=== PATIENT | male | born 1935 | race Caucasian/White ===

== ENCOUNTER 2016-11-23 14:50 | Inpatient (IN) | payer MEDICARE, BC, MEDICAID ==
--- NOTE | 2016-11-23 15:19 | ED Physician Chart ---
Chief Complaint/HPI - Patient Information Date Seen:: 11/23/16 Time Seen:: 14:52 Chief Complaint:: Hyperglycemia History of Present Illness:: Brought in by ambulance from nursing facility because his glucose was noticed to be in the high 400's/low 500's range. Pt appears to be comfortable and is in no distress. Pt has h/o dementia and is not fully cooperative; thus, H & P are limited. Info is primarily from review of transfer documents. Allergies:: Allergies Allergy/AdvReac Type Severity Reaction Status Date / Time No Known Allergies Allergy Verified 04/09/16 17:05 Vitals:: see Nurse Note. Historian:: Patient, Medical Records (from transferring facility.) Family MD/PCP:: Dr. Vang LMP:: N/A Review:: Nurse's Note Reviewed, Transfer documents Reviewed Review of Systems - Review of Systems General/Constitutional: Other (pt does not cooperate for ROS.) Past Medical History - Past Medical History Past Medical History: HTN, DM, CAD, Dementia (with Alzheimer's Disease.), Other (BPH, chronic renal insufficiency.) Family History: Other (Pt does not cooperate to provide info on FHx.) Social History: Care Facility, Other (Pt does not cooperate to provide info on SHx.) Employment:: Retired. Surgical History: other (Pt does not cooperate to provide info on Surgical Hx.) Psychiatricy History: Dementia Medication: Reviewed Family Medical History - Family Member Mother History Unknown: Yes Ethnicity: Unknown Living Status: Unknown Hx Family Cancer: (Unknown) Hx Family Coronary Artery Disease: (Unknown) Hx Family Congestive Heart Failure: (Unknown) Hx Family Hypertension: (Unknown) Hx Family Stroke: (Unknown) Hx Family Diabetes: (Unknown) Hx Family Seizures: (Unknown) Hx Family Dementia: (Unknown) Hx Family AIDS: (Unknown) Hx Family Hepatitis: (Unknown) Hx Family Psychiatric Problems: (Unknown) Hx Family Tuberculosis: (Unknown) Physical Exam - Physical Examination General/Constitutional: Awake, Well-developed, well-nourished, Alert, No distress, Non-toxic appearing Other Gen/Cons comments:: Breathes comfortably, speaks clearly, but is not fully cooperative. Head: Atraumatic Eyes: Lids, conjuctiva normal, PERRL, EOMI Skin: Nl inspection, No rash, No skin lesions, No ecchymosis, Well hydrated, No lymphadenopathy ENMT: External ears, nose nl, Nasal exam nl, Oropharynx nl Neck: Nontender, Full ROM w/o pain, No JVD, No nuchal rigidity, No mass, No stridor Respiratory: Nl effort/Exclusion, Clear to Auscultation, No Wheeze/Rhonchi/Rales Cardio Vascular: RRR, No murmur, gallop, rubs, NL S1 S2 Other Cardio Vascular comments:: Chest wall: tenderness to palpation at costosternal junctures at R mid upper chest. No crepitus, erythema, ecchymosis, swelling, open wound, or gross deformity. Pt states that he may have had this pain for months. GI: No tenderness/rebounding/guarding, No organomegaly, No hernia, Normal BS's, Nondistended, No mass/bruits, No McBurney tenderness Other GI comments:: Obese but soft. : No CVA tenderness Extremities: No tenderness or effusion, No edema Other Neuro/Psych comments:: Alert, knows his name. Spontaneous movements noticed in all 4 extremities. Pt does not cooperate for full neurological exam. Labs/Radiology/EKG Results - Lab Results Results: Laboratory Tests 11/23/16 15:01 POC Glucose 462 H* - EKG Interpretations EKG Time:: 15:31 Rhythm: NSR Rate: 76 Comments:: No acute ischemic changes. ED Septic Shock - . Is Septic Shock (SBP<90, OR Lactate>4 mmol\L) present?: No Reassessment (Disposition) - Reassessment Reassessment:: 1530 Pain medication was offered. Pt declined and stated that his chest pain occurs only when he takes a deep breath. 1715 Pt's condition remains stable. Case has been discussed with Dr. Miner, who covers for Dr. Vang, with pertinent H & P, EKG, CXR, and lab findings reviewed. Pt [facility] care. Reassessment Condition:: Improved - Diagnosis Diagnosis:: Urinary tract infection. Stable. Diabetic mellitus, poorly controlled due to condition above. Chronic renal insufficiency, stable. Noncardiac chest wall pain, stable. HTN, stable. h/o dementia. - Patient Disposition Admitted to:: Med/Surg Admitting Medical Physician:: Herson Miner Time:: 17:20 Condition at Disposition:: Stable, Improved
[2016-11-23 15:41] LABS: % BASOPHILS 0.8 % (0.0-2.0); % EOSINOPHILS 2.5 % (0.0-5.0); % LYMPHOCYTES 24.1 % (20.0-50.0); % MONOCYTES 7.3 % (2.0-10.0); % NEUTROPHILS 65.3 % (40.0-80.0); HEMATOCRIT 41.4 % (39.0-49.0); HEMOGLOBIN 13.9 gm/dL (12.6-17.4); MEAN CELL VOLUME 83.8 fl (80-99); MEAN CORPUSCULAR HGB CONC 33.5 pg (28.0-36.0); MEAN PLATELET VOLUME 8.5 fl; NEUTROPHILE ABSOLUTE 5.6 Th/cmm (1.8-8.0); PLATELET COUNT 230 Th/cmm (150-400); RED BLOOD COUNT 4.94 Mil/cmm (3.80-5.80); RED CELL DISTRIBUTION WIDTH 12.3 % (11.5-20.0)
[2016-11-23 15:53] LABS: WHITE BLOOD COUNT 8.6 Th/cmm (4.8-10.8)
[2016-11-23 15:57] LABS: PROTHROMBIN TIME (TEST) 9.9 SECONDS (9.5-11.5)
[2016-11-23 16:01] LABS: ALB/GLOB RATIO 0.9 (1.0-1.8); ALKALINE PHOSPHATASE 90 U/L (34-104); ANION GAP 8.3 (7.0-16.0); BILIRUBIN,TOTAL 0.3 mg/dL (0.3-1.0); BUN - UREA NITROGEN 34 mg/dL (7-25); BUN/CREATININE RATIO 18.9; CALCIUM SERUM 9.4 mg/dL (8.6-10.3); CARBON DIOXIDE 24.3 mEq/L (21.0-31.0); CHLORIDE 101 mEq/L (98-107); CREATININE - SERUM 1.8 mg/dL (0.7-1.3); GLUCOSE 410 mg/dL (70-105); POTASSIUM SERUM 4.6 mEq/L (3.5-5.1); SGOT 11 U/L (13-39); SGPT/ALT 10 U/L (7-52); SODIUM SERUM 129 mEq/L (136-145)
[2016-11-23 16:09] LABS: URINE BILIRUBIN NEGATIVE (NEGATIVE); URINE BLOOD TRACE (NEGATIVE); URINE COLOR YELLOW; URINE GLUCOSE (UA) 500 mg/dL (NEGATIVE); URINE KETONE NEGATIVE (NEGATIVE); URINE PROTEIN TRACE mg/dL (NEGATIVE); URINE UROBILINOGEN 0.2 E.U./dL (0.2 - 1.0)
[2016-11-23 16:10] LABS: URINE BACTERIA MANY /hpf (NONE SEEN); URINE EPITHELIAL CELLS FEW /lpf (FEW); URINE RBC 0-2 /hpf (0-5); URINE WBC 50-100 /hpf (0-5)
[2016-11-23] MEDS ORDERED: INSULIN HUMAN REGULAR 100 UNITS/ML UNIT SUBQ ONE (16:23)
[2016-11-23] MEDS ORDERED: Levofloxacin 500mg/100mL 500 MG in Premix Fluid 1 BAG IV ONE (16:24)
[2016-11-23] MEDS ORDERED: Levofloxacin 500mg/100mL 500 MG/100 ML BAG IV ONE (16:27)
[2016-11-23] MEDS ORDERED: INSULIN HUMAN REGULAR 100 UNITS/ML UNIT ONE (16:28)
--- NOTE | 2016-11-23 18:22 | Admit Criteria Form ---
Admit Criteria Forms - Admit Criteria Diagnosis: DIABETES Clinical Indications for Admission to Inpatient Care (Place 'X' for any and all applicable criteria): Admission is indicated by presence of ALL (if I & II) or ANY ONE (if III or IV) of the following (1)(2)(3)(4): [X]I. Diabetes is uncontrolled as indicated by ANY ONE of the following: [ ]a) Diabetic ketoacidosis as indicated by ALL of the following (8): [ ]i) Hyperglycemia (eg, plasma glucose greater than 200 mg/ dL (11.1 mmol/L)) [ ]ii) Acidosis (eg, arterial pH less than 7.30, serum bicarbonate level less than 15 mEq/L (mmol/L)) [ ]iii) Moderate ketonuria or ketonemia [ ]b) Hyperglycemic hyperosmolar state as indicated by ALL of the following(9)(10): [ ]i) Neurologic dysfunction (eg, stupor, coma, hemiparesis , seizure)(13) [ ]ii) Plasma glucose greater than 600 mg/dL (33.3 mmol/L) [ ]iii) Serum osmolality greater than 320 mOsm/kg (mmol/kg) [X]c) Severe signs or symptoms secondary to hyperglycemia indicated by ANY ONE of the following: [ ]i) Altered mental status(10) [ ]ii) Significant hypovolemia or dehydration [ ]iii) Intractable nausea or vomiting [X]iv) Unexplained fever or severe infection [X ]v) Severe electrolyte abnormality (eg, hypokalemia, hyperkalemia, hypernatremia) [ ]II. Management at other levels of care (Also use Diabetes: Observation Care as appropriate) is not feasible because of ANY ONE of the following: [ ]a) Condition was not adequately corrected with treatment at other levels of care. [ ]b) Treatment at other levels of care is not appropriate because of condition severity (eg, hyperosmolar coma). [ ]III. Contraindications and/or Inappropriate clinical situations for Observational Care in patients with Diabetes, when ANY ONE of the following is required: [ ]a) Patient require specific diagnostic workup or therapeutic intervention 22 [ ]b) Patient with abnormal vital signs or altered mental status 23 [ ]IV. General contraindications and/or Inappropriate clinical situations for Observational Care in patients with Diabetes, when ANY ONE of the following is required: [ ]a) Prediction of prolongation of LOS based on ANY ONE of the following may be considered as a contraindication for observational care 2, 3, 4, 5, 6, 7, 8, 9, 10, 11 [ ]i) Age > 65 yrs. [ ]ii) Patient arriving by ambulance [ ]iii) Patient with high acuity [ ]iv) Patient requiring vital sign monitoring [ ]v) Patient on IV medication [ ]b) Systolic blood pressures 180mmHg 3,12 [ ]c) Patient with altered mental status including delirium and other alteration of consciousness, (3) [ ]d) Patient whose discharge disposition will be to a nursing home home or rehabilitation home should not be managed in Emergency Department Observation Unit. CMS rule requires 3 days hospital stay before such placement.3,13 [ ]e) Patient with failure to thrive due to broad array of etiologies 3,16,17 [ ]f) Inability to ambulate 3,14 Extended stay beyond goal length of stay may be needed for(3)(20): [ ]a) Treatment of precipitating causes [ ]b) Development of hypoglycemia [ ]c) Complications of treatment [ ]d) Complications of decompensated diabetes (eg, acute gastric dilatation, persistent metabolic or neurologic derangement) [ ]e) Active Comorbidities [ ]f) Older patients( 65 years or older) The original [facility] content created by [employer] has been revised. The portions of the content which have been revised are identified through the use of italic text or in bold,and [employer] has neither reviewed nor approved the modified material. All other unmodified content is copyright [facility] [employer]. Please see references footnoted in the original [facility] [employer] edition 2016 Admit Criteria Met?: Yes
[2016-11-23] MEDS ORDERED: Sodium Chloride 0.9% 1,000 ML IV SCH (18:30)
[2016-11-23] MEDS ORDERED: cefTRIAXone 1 GM in Sodium Chloride 0.9% 50 ML IV ONE (18:30)
[2016-11-23] MEDS ORDERED: Magnesium Hydroxide (MOM) 30 mL UDC PO PRN (19:34)
[2016-11-23] MEDS ORDERED: cefTRIAXone 1 GM in Sodium Chloride 0.9% 50 ML IV SCH (19:45)
[2016-11-23] MEDS: INSULIN ASPART SLIDING SCALE 100 UNITS/ML UNIT SUBQ SCH (20:18)
--- NOTE | 2016-11-23 20:59 | History & Physical ---
CHIEF COMPLAINT: Elevated blood sugar. HISTORY OF PRESENT ILLNESS: This is an 81-year-old male with past medical history significant for diabetes who presents after [facility] staff were unable to get a reading on his blood sugar because it was too at a range. The patient was sent to Emergency Room for evaluation. In the ER the patient's blood sugar was found to be in the 400 range. He was also found to have evidence of urinary tract infection. He has been admitted for further treatment and care. The patient was seen in hospital bed. He is awake, able to communicate needs, but confused and a poor historian. Denies any chest pain, abdominal pain, denies any fever or chills. Denies any nausea, vomiting or diarrhea. PAST MEDICAL HISTORY: The patient has history of dementia, diabetes mellitus, chronic kidney disease and chronic hyponatremia. MEDICATIONS: As per reconciliation. ALLERGIES: No known drug allergies. SOCIAL HISTORY: No tobacco, alcohol or illicit drug use. The [facility] is a resident of [facility]. FAMILY HISTORY: Noncontributory. REVIEW OF SYSTEMS: IMMUNOLOGIC: No recurrent infection. CARDIOVASCULAR: No known heart disease or hypertension. GASTROINTESTINAL: No nausea, vomiting or diarrhea. ENDOCRINE: The patient has diabetes. No thyroid disorder. NEUROLOGIC: No seizure or stroke. HEMATOLOGIC: No bleeding or clotting disorder. PHYSICAL EXAMINATION: GENERAL: The patient is awake and alert, in no acute distress and tends to ambulate in room despite being instructed to stay in bed. HEENT: The patient's pupils are equally round and anicteric sclerae. NECK: Supple. No JVD, mass or bruit. LUNGS: Clear to auscultation. HEART: S1 and S2 regular rate and rhythm. ABDOMEN: Soft, nontender, positive bowel sounds. EXTREMITIES: No clubbing, cyanosis or edema. BACK: ____deformity. NEUROLOGIC: Moves all extremities equally. No motor or sensory deficit except for confusion. VITAL SIGNS: Temperature 97.7, pulse 78, respirations 20 and blood pressure 162/94. LABORATORY DATA: CBC is unremarkable. Sodium is 139, BUN 24, creatinine 1.8, glucose is 410 and albumin is ____. Urinalysis shows small leukocyte esterase, 50-100 wbc's and many bacteria. IMPRESSION: 1. Hyperglycemia. 2. Uncontrolled diabetes mellitus. 3. Hyponatremia. 4. Urinary tract infection. 5. Dementia. 6. Mild malnutrition. PLAN: Admit to med/surg. Empirically started on IV antibiotics. Continue IV hydration and the patient will need a sitter as well as be on fall precautions given this propensity to wander. We will request a psychiatric consult for further evaluation. JOB# [id number]
[2016-11-24] MEDS: Insulin Detemir 100 units/mL 10mL Vial SUBQ SCH ×2 (01:18→22:19)
[2016-11-24 07:10] LABS: % BASOPHILS 0.3 % (0.0-2.0); % EOSINOPHILS 3.6 % (0.0-5.0); % LYMPHOCYTES 24.4 % (20.0-50.0); % MONOCYTES 6.5 % (2.0-10.0); % NEUTROPHILS 65.2 % (40.0-80.0); HEMATOCRIT 38.8 % (39.0-49.0); HEMOGLOBIN 13.1 gm/dL (12.6-17.4); MEAN CELL VOLUME 83.1 fl (80-99); MEAN CORPUSCULAR HEMOGLOBIN 28.2 pg (27.0-31.0); MEAN CORPUSCULAR HGB CONC 33.9 pg (28.0-36.0); MEAN PLATELET VOLUME 8.9 fl; NEUTROPHILE ABSOLUTE 5.5 Th/cmm (1.8-8.0); PLATELET COUNT 212 Th/cmm (150-400); RED BLOOD COUNT 4.67 Mil/cmm (3.80-5.80); RED CELL DISTRIBUTION WIDTH 12.3 % (11.5-20.0); WHITE BLOOD COUNT 8.5 Th/cmm (4.8-10.8)
[2016-11-24 07:12] LABS: ANION GAP 8.3 (7.0-16.0); BUN - UREA NITROGEN 35 mg/dL (7-25); BUN/CREATININE RATIO 20.6; CALCIUM SERUM 9.1 mg/dL (8.6-10.3); CARBON DIOXIDE 22.7 mEq/L (21.0-31.0); CHLORIDE 106 mEq/L (98-107); CREATININE - SERUM 1.7 mg/dL (0.7-1.3); GLUCOSE 287 mg/dL (70-105); SODIUM SERUM 133 mEq/L (136-145)
[2016-11-24] MEDS: Sodium Chloride 0.9% 1,000 ML IV SCH ×2 (09:55→23:04)
[2016-11-24] MEDS: Multivitamin w/ Minerals Tab PO SCH (09:56)
[2016-11-24] MEDS: INSULIN ASPART SLIDING SCALE 100 UNITS/ML UNIT SUBQ SCH ×3 (12:14→22:18)
--- NOTE | 2016-11-24 16:45 | Diagnostic Imaging Report ---
Portable chest x-ray History: Pain Allowing for portable technique the heart size is normal. No focal pulmonary parenchymal processes. No hilar or mediastinal abnormalities. Impression: Allowing for a poor inspiration, no acute processes.
[2016-11-24] MEDS ORDERED: cefTRIAXone 1 GM in 0.9% NS 50 ML IV SCH (21:00)
[2016-11-25] MEDS: INSULIN ASPART SLIDING SCALE 100 UNITS/ML UNIT SUBQ SCH ×4 (06:36→21:41)
[2016-11-25] MEDS: Multivitamin w/ Minerals Tab PO SCH (09:20)
[2016-11-25] MEDS ORDERED: Insulin Detemir 100 units/mL 10mL Vial SUBQ SCH (12:11)
[2016-11-25] MEDS ORDERED: cefTRIAXone 1 GM in Sodium Chloride 0.9% 100 ML IV SCH (21:00)
--- NOTE | 2016-11-26 02:12 | Discharge Summary ---
FINAL DIAGNOSES: 1. Urinary tract infection. 2. Hyponatremia. 3. Uncontrolled diabetes mellitus. 4. Dementia. REVIEW OF HISTORY: The patient is an 81-year-old male with long history of diabetes mellitus and dementia, presented to the Emergency Room with severe hyperglycemia and hyponatremia, admitted to the hospital. We started him on IV fluid, diabetic diet, sliding scale with regular insulin coverage, Psych evaluation ordered. PHYSICAL EXAMINATION: CHEST: Clear to auscultation. ABDOMEN: Soft. Bowel sounds positive. EXTREMITIES: No edema. VITAL SIGNS: Temperature 97.7, heart rate 78. LABORATORY DATA: Sodium 139, BUN 24, creatinine ____. COURSE OF HOSPITALIZATION: During his hospitalization, the patient improved clinically. PHYSICAL EXAMINATION: On 11/24/2016: VITAL SIGNS: Temperature 98, heart rate 86. CHEST: Clear to auscultation. ABDOMEN: Soft. Bowel sounds positive. LABORATORY DATA: Sodium 133, potassium 4.0, BUN 35, creatinine . White blood cell 8.5, hemoglobin 13. DISPOSITION: The patient is accepted by [facility] at [facility]. The patient is going to be transferred to Geropsych Department on 07/25/2017 to continue on his antibiotic medication. CONDITION ON DISCHARGE: Stable. MEDICATIONS: Follow discharge reconciliation. JOB# [id number]
--- NOTE | 2016-11-26 04:03 | Consultation ---
REASON FOR CONSULTATION: Psych eval. HISTORY OF PRESENT ILLNESS: This is an 81-year-old male currently from a nursing facility, brought in due to high glucose. On [id number], the patient is confused, AO to name only, does not know where he is. He does not know why he is here. He does not really know what is going on. Resting comfortably on exam. No distress. PAST PSYCHIATRIC HISTORY: Unclear. Appears to be demented. FAMILY HISTORY: Unknown. SOCIAL HISTORY: Living in a nursing facility, requiring a high level of care. Denies that he is . Denies any children. MEDICATIONS: Reviewed. LAB DATA: Reviewed. MENTAL STATUS EXAMINATION: Appearance stated age, some eye contacts, and speech decreased content. Mood "okay." Affect flat. Thought processes were confused. Thought content, no overt SI or HI. No overt evidence of psychosis. Insight and judgment diminished x 2. PROVISIONAL DIAGNOSIS: Dementia. Under medical, as noted. RECOMMENDATIONS AND PLAN: No changes at this time, no acute psychiatric interventions at this time. Consider the addition of Aricept, continue Namenda. We will continue to follow up. JOB# [id number]
== END 2016-11-25 23:24 | DRG 638 ==
LOC: ER 14:50 → MSI 17:15
PROVIDERS: ADMIT Family Medicine; ATTEND Family Medicine
DX: E11.65 Type 2 diabetes mellitus with hyperglycemia (principal); E87.1 Hypo-osmolality and hyponatremia; N39.0 Urinary tract infection, site not specified; E44.1 Mild protein-calorie malnutrition; E11.22 Type 2 diabetes mellitus with diabetic chronic kidney disease; N18.9 Chronic kidney disease, unspecified; I25.10 Atherosclerotic heart disease of native coronary artery without angina pectoris; G30.9 Alzheimer's disease, unspecified; F02.80 Dementia in other diseases classified elsewhere, unspecified severity, without behavioral disturbance, psychotic disturbance, mood disturbance, and anxiety; N40.0 Benign prostatic hyperplasia without lower urinary tract symptoms; I12.9 Hypertensive chronic kidney disease with stage 1 through stage 4 chronic kidney disease, or unspecified chronic kidney disease; R07.89 Other chest pain
CPT/HCPCS: 36415-UA; 71010-TC; 80048-TC; 80053-TC; 81001-TC; 82010-TC; 82550-TC; 82947-TC; 82948-90; 83036-90; 84484-TC; 85025-TC; 85610-TC; 87086-90; 93005; J0696; J1815; J1956; J7030

== ENCOUNTER 2016-11-25 23:25 | Inpatient (IN) | payer MEDICARE, BC, MEDICAID ==
[2016-11-26] MEDS ORDERED: Magnesium Hydroxide (MOM) 30 mL UDC PO PRN (00:49)
[2016-11-26] MEDS ORDERED: Maalox 30 mL Cup PO PRN (00:49)
[2016-11-26 02:10] VITALS: BP 152/89
[2016-11-26] MEDS: INSULIN ASPART SLIDING SCALE 100 UNITS/ML UNIT SUBQ SCH ×4 (06:42→21:00)
[2016-11-26] MEDS: Multivitamin Tab PO SCH (09:19)
[2016-11-26] MEDS ORDERED: Insulin Detemir 100 units/mL 10mL Vial SUBQ SCH (21:00)
[2016-11-26] MEDS: Insulin Detemir 100 units/mL 10mL Vial SUBQ SCH (21:53)
--- NOTE | 2016-11-27 01:30 | History & Physical ---
HISTORY OF PRESENT ILLNESS: The patient is an 81-year-old male with long history of insulin requiring diabetes mellitus and dementia, admitted to [facility] with altered level of consciousness, urinary tract infection, agitation, started on Rocephin, evaluated by Dr. Heard and transferred to [facility] for continuation of medication and evaluation. The patient is a poor historian. PAST MEDICAL HISTORY: Significant for insulin requiring diabetes mellitus, dementia. PAST SURGICAL HISTORY: No recent surgery. ALLERGIES: None. MEDICATIONS: Follow admission reconciliation. SOCIAL HISTORY: No smoking, alcohol or drug. FAMILY HISTORY: Noncontributory. REVIEW OF SYSTEMS: RENAL SYSTEM: No history of chronic renal disorder. CARDIOVASCULAR SYSTEM: No coronary artery disease. ENDOCRINE SYSTEM: He has history of diabetes mellitus. GASTROINTESTINAL SYSTEM: No upper or lower gastrointestinal bleed. NEUROLOGICAL SYSTEM: He has history of dementia. PHYSICAL EXAMINATION: GENERAL: He is awake, not coherent. VITAL SIGNS: Temperature is 97.6, heart rate 89, blood pressure 141/77. HEENT: Normocephalic. Pupils reacting to light and accommodation. Sclerae clear. NECK: Supple. Negative for lymphadenopathy, JVD or bruit. CHEST: Bilaterally normal. No rhonchi or wheezing. HEART: S1, S2 normal. No murmur or gallop. ABDOMEN: Soft. Bowel sounds positive. EXTREMITIES: No edema. BACK: No tenderness. SKIN: Intact. NEUROLOGIC: He is awake, alert, not fully oriented. No focal motor or sensory deficits. Cranial nerves II-XII intact. ASSESSMENT: 1. Urinary tract infection. 2. Insulin requiring diabetes mellitus. 3. Hypertension. 4. Dementia. PLAN: The patient admitted to the hospital under Dr. Mcneal's service. The medical problems to be addressed during hospitalization are dementia and urinary tract infection. Medical problems to be addressed at discharge are diabetes mellitus and dementia. The patient is medically stable for activity. Thank you, Dr. Mcneal, for asking me to see your patient. JOB# [id number]
--- NOTE | 2016-11-27 01:31 | Psychosocial Evaluation ---
CHIEF COMPLAINT: "I don't know. Don't ask me too many questions." HISTORY OF PRESENT ILLNESS: The patient is an 81-year-old male with history of dementia. The patient was transferred from [facility]. The patient has been anxious and has been in irritable mood. The patient also has been confused. The patient also has been restless. The patient also has been suspicious and has been paranoid. He also has been having difficulty following staff directions and the patient needed lots of redirections. PAST PSYCHIATRIC HISTORY: The patient has history of dementia. PAST MEDICAL HISTORY: No acute and as per Dr. Vnag and insulin-dependent diabetes mellitus. SOCIAL HISTORY: No known alcohol or drug use. MENTAL STATUS EXAMINATION: The patient appears his stated age. Anxious. Slightly overweight. Thought processes are circumstantial with flight of ideas. The patient denies auditory or visual hallucinations, but seems to be suspicious and paranoid. The patient denies any suicidal or homicidal ideations. The patient is alert and oriented to time, place, person and situation. Impaired, immediate and recent memory, but intact remote memory. Poor insight and he does not know why he is in the hospital. Poor judgment and the patient is agitated and aggressive. He seems to be of average intelligence based on his verbal ability. ASSESSMENT: PRIMARY DIAGNOSIS: Unspecified psychosis. TREATMENT PLAN: We will continue monitoring his behavior and his condition closely. We will start individual as well as milieu psychotherapy. Also, we will start the patient on Risperdal and we will adjust the dose. ESTIMATED LENGTH OF STAY: 7-10 days. THE PATIENT'S STRENGTHS AND WEAKNESSES: The patient seems to be in relatively fair health. Weaknesses is his ineffective coping and poor impulse control. AFTER DISCHARGE PLAN: Outpatient treatment and the patient will return to his group home. CRITERIA FOR DISCHARGE: Better impulse control. JOB# [id number]
[2016-11-27] MEDS: INSULIN ASPART SLIDING SCALE 100 UNITS/ML UNIT SUBQ SCH ×4 (06:37→21:54)
[2016-11-27] MEDS: Multivitamin Tab PO SCH (08:32)
[2016-11-27] MEDS: Insulin Detemir 100 units/mL 10mL Vial SUBQ SCH (21:56)
--- NOTE | 2016-11-28 02:36 | Progress Notes ---
Case discussed with staff of the patient, reviewed records. The patient is an 81-year-old male who was admitted on 11/25/2016. He is a well known patient to me as I saw him last week at [facility]. I have been seeing him for a while now, with a history of psychosis, dementia. The patient was admitted to Med/Surg. He was there. He has high blood pressure. He is being confused, restless, suspicious, paranoid and having difficulty following staff direction. The patient was seen first by Dr. Heard who kept him on the Namenda 10 mg twice a day and he is still unpredictable, impulsive, needing redirection, needing help with his ADLs and we will continue to work with the patient in group therapy, milieu therapy, adjust the medication as needed. JOB# [id number]
[2016-11-28] MEDS: INSULIN ASPART SLIDING SCALE 100 UNITS/ML UNIT SUBQ SCH ×4 (06:32→21:05)
[2016-11-28] MEDS: Multivitamin Tab PO SCH (08:34)
[2016-11-28] MEDS ORDERED: INSULIN ASPART, RECOMBINANT 100 UNITS/ML SUBQ ONE (11:22)
[2016-11-28] MEDS: Insulin Detemir 100 units/mL 10mL Vial SUBQ SCH (21:07)
--- NOTE | 2016-11-29 03:08 | Progress Notes ---
Case was discussed with staff of the patient, reviewed records. The patient continues to isolate himself, stays in the room. He continues to be confused, continues to be unable to participate in a meaningful conversation or make safe plan for his self-care. His blood sugar is being controlled and I think that may have to do with his confusion. He also is on Risperdal 0.5 mg daily with no side effects, no sedation, no nausea, no extrapyramidal symptoms. We will continue to work with the patient in group therapy, milieu therapy, adjust the medication as needed. JOB# [id number]
[2016-11-29] MEDS: INSULIN ASPART SLIDING SCALE 100 UNITS/ML UNIT SUBQ SCH ×4 (06:45→21:17)
[2016-11-29] MEDS: Multivitamin Tab PO SCH (08:13)
[2016-11-29] MEDS: Insulin Detemir 100 units/mL 10mL Vial SUBQ SCH (21:18)
--- NOTE | 2016-11-30 06:08 | Progress Notes ---
Case was discussed with staff of the patient, reviewed records. The patient continues to be unpredictable, impulsive. He is more alert today. He is compliant with the medication with no side effects, no sedation, no nausea. He is sleeping better, eating better. No extrapyramidal symptoms. We will continue to work with the patient in group therapy, milieu therapy, adjust the medication as needed. His urine culture showed group beta Streptococcus. His blood sugar was extremely high, 469. MRSA screening was negative. Hematocrit is low. The rest within normal range. Serum sodium is low. He has high BUN, high creatinine. His hemoglobin A1c was high. Urinalysis shows and leukocytic esterase and white cells. I will be consulting with the medical doctor regarding that. Chest x-ray showed no focal pulmonary parenchymal process, no hilar or mediastinal abnormalities. So, Dr. Vang will be consulted regarding the abnormal lab work. We will continue to work with the patient in group therapy, milieu therapy, adjust medications. JOB# [id number]
[2016-11-30] MEDS: INSULIN ASPART SLIDING SCALE 100 UNITS/ML UNIT SUBQ SCH ×4 (06:48→20:50)
[2016-11-30] MEDS: Multivitamin Tab PO SCH (09:03)
[2016-11-30] MEDS ORDERED: Guaifenesin DM 10 ML UDC PO PRN (14:57)
[2016-11-30] MEDS: Insulin Detemir 100 units/mL 10mL Vial SUBQ SCH (20:47)
--- NOTE | 2016-12-01 05:47 | Progress Notes ---
Case was discussed with staff of the patient, reviewed records. The patient has been staying in bed. He is suffering with upper respiratory tract infection. He is isolating himself. He is not sure of the date, where he is, why he is here. He is demented and confused. He is compliant with the medication with no side effects, no sedation and no nausea. He is on Namenda 10 mg twice a day, Risperdal 0.5 mg daily and no side effects with the medication, no sedation, no nausea and no extrapyramidal symptoms. I did consult Dr. Vang regarding his abnormal lab work. We will continue to work with the patient in group therapy, milieu therapy and adjust medication as needed. JOB# [id number]
[2016-12-01] MEDS: INSULIN ASPART SLIDING SCALE 100 UNITS/ML UNIT SUBQ SCH ×4 (06:57→20:41)
[2016-12-01] MEDS: Multivitamin Tab PO SCH (08:42)
[2016-12-01] MEDS: Insulin Detemir 100 units/mL 10mL Vial SUBQ SCH (20:39)
--- NOTE | 2016-12-02 02:31 | Progress Notes ---
Case was discussed with staff of the patient, reviewed records. The patient is up and about. He is more alert. He is able to carry on a conversation now. He is easier to redirect. He is sleeping better and eating better. He continues to have episodes where he gets agitated, but then it does not take him as much to put him back on track. He is compliant with the medication with no side effects, no sedation, no nausea, and no extrapyramidal symptoms. I will continue to work with the patient in group therapy, milieu therapy, and adjust the medication as needed. JOB# [id number]
[2016-12-02] MEDS: INSULIN ASPART SLIDING SCALE 100 UNITS/ML UNIT SUBQ SCH ×4 (07:18→21:00)
[2016-12-02] MEDS: Multivitamin Tab PO SCH (09:05)
[2016-12-02] MEDS: Insulin Detemir 100 units/mL 10mL Vial SUBQ SCH (21:00)
--- NOTE | 2016-12-03 01:34 | Progress Notes ---
Case discussed with staff of the patient, reviewed records. The patient continues to be confused. He wanders on the unit. He has been at times agitated, continues to need redirection, unpredictable, demented. He has been compliant with the medication with no side effects, no sedation, no nausea, no extrapyramidal symptoms. He is on Namenda 10 mg twice a day, Risperdal 0.5____ mg daily. I will be adding Aricept to his medication 5 mg at bedtime to help with his confusion and poor memory and we will continue to work with the patient in group therapy, milieu therapy, adjust the medication as needed. JOB# [id number]
[2016-12-03] MEDS: INSULIN ASPART SLIDING SCALE 100 UNITS/ML UNIT SUBQ SCH ×4 (06:46→21:06)
[2016-12-03] MEDS: Multivitamin Tab PO SCH (08:30)
[2016-12-03] MEDS: Insulin Detemir 100 units/mL 10mL Vial SUBQ SCH (21:20)
--- NOTE | 2016-12-04 01:20 | Progress Notes ---
Case was discussed with staff of the patient. The patient continues to be confused and agitated. Continues to be pacing at times. He has episodes better than the others, needing redirection. He continues to have poor insight. He is compliant with the medication with no side effects, no sedation, and no nausea. We did initiate Aricept ____ yesterday and we are increasing his Risperdal dose to 0.75 mg and so far no side effects, no sedation, no nausea, and no extrapyramidal symptoms. We will continue to work with the patient in group therapy, milieu therapy, and adjust medication as needed. JOB# [id number]
[2016-12-04] MEDS: INSULIN ASPART SLIDING SCALE 100 UNITS/ML UNIT SUBQ SCH ×4 (06:46→21:11)
[2016-12-04] MEDS: Multivitamin Tab PO SCH (08:54)
[2016-12-04] MEDS: Insulin Detemir 100 units/mL 10mL Vial SUBQ SCH (21:10)
--- NOTE | 2016-12-05 05:06 | Progress Notes ---
SUBJECTIVE: The patient seen, chart reviewed, discussed with staff. This is a followup note. The patient is currently in the hospital, dementia, confusion, restless, irritable, suspicious, paranoid. On [id number], the patient is confused, disoriented and states, "I'm not leaving." The patient is unable to utilize basic food, clothing and chcf. Unable to be cared for at a lower level of care at this time, still with evidence of psychosis, still with overt safety concerns, still confused, agitated with poor insight. Dr. Mcneal has been increasing dosages of medications. No EPS. Sleeping fairly well. Eating with prompting. ASSESSMENT: The patient remains symptomatic, still delusional, agitated, not safe for a lower level of care. PLAN: Continue to monitor and adjust medications. [facility]# [id number]
[2016-12-05] MEDS: INSULIN ASPART SLIDING SCALE 100 UNITS/ML UNIT SUBQ SCH ×4 (06:44→20:41)
[2016-12-05] MEDS: Multivitamin Tab PO SCH (10:49)
[2016-12-05] MEDS: Insulin Detemir 100 units/mL 10mL Vial SUBQ SCH (20:40)
--- NOTE | 2016-12-06 02:15 | Progress Notes ---
SUBJECTIVE: The patient seen, chart reviewed, discussed with staff. The patient with history of dementia, confusion, still restless, still irritable, still delusional, paranoid, has no plans for basic food, clothing and usp, unable to utilize basic food, clothing and usp. At this time, still with confusion and agitation, no EPS noted on exam. Sleeping fairly well, withdrawn, isolative, eating with prompting, ADLs with prompting. ASSESSMENT: The patient remains symptomatic, still psychotic and not safe for discharge. PLAN: We will continue to adjust and titrate medications. We will monitor closely for any undue side effects. [facility]# [id number]
[2016-12-06] MEDS: INSULIN ASPART SLIDING SCALE 100 UNITS/ML UNIT SUBQ SCH ×4 (06:58→21:03)
[2016-12-06] MEDS: Multivitamin Tab PO SCH (08:23)
[2016-12-06] MEDS: Insulin Detemir 100 units/mL 10mL Vial SUBQ SCH (21:04)
--- NOTE | 2016-12-06 23:53 | Progress Notes ---
SUBJECTIVE: The patient was seen, chart reviewed, and discussed with staff. The patient remains confused, restless, asking for snacks, wandering, still delusional, unable to provide for basic food, clothing, and long-term, unable to utilize basic food, clothing, and long-term due to the severity of his confusion and paranoia. The patient is redirectable, sleeping well, eating well, still lashing out at times, but more redirectable, better following in rules and direction, eating with prompting, and ADLs with prompting. ASSESSMENT: The patient remains symptomatic, still delusional, and still with grave disability. PLAN: Continue to monitor and titrate medications. Given the severity of the patient's current symptoms or concerns about him unable to function at a lower level of care. [facility]# [id number]
[2016-12-07] MEDS: INSULIN ASPART SLIDING SCALE 100 UNITS/ML UNIT SUBQ SCH ×4 (08:53→21:19)
[2016-12-07] MEDS: Multivitamin Tab PO SCH (08:54)
[2016-12-07] MEDS: Insulin Detemir 100 units/mL 10mL Vial SUBQ SCH (21:20)
--- NOTE | 2016-12-07 23:43 | Progress Notes ---
SUBJECTIVE: The patient was seen, chart reviewed and discussed with staff. The patient remains confused, restless, easily agitated, labile, still wandering, delusional concerns for his ability to utilize basic food, clothing and fci; however, he has been more redirectable, less aggressive sleeping well, eating well, still needing prompting for ADLs, prompting to eat. ASSESSMENT: The patient is still symptomatic; however, less delusional, still easily agitated, still labile and still gravely disabled. PLAN: Continue to monitor and titrate medications due to the severity of the patient's symptoms. He is not safe for discharge. [facility]# [id number]
[2016-12-08] MEDS: INSULIN ASPART SLIDING SCALE 100 UNITS/ML UNIT SUBQ SCH ×4 (06:37→20:30)
[2016-12-08] MEDS: Multivitamin Tab PO SCH (08:17)
[2016-12-08] MEDS: Insulin Detemir 100 units/mL 10mL Vial SUBQ SCH (20:31)
--- NOTE | 2016-12-09 00:51 | Progress Notes ---
Case discussed with staff of the patient, reviewed records. The patient continues to be confused, unpredictable, impulsive, needing redirection. Continues to have poor insight, easily agitated. He is compliant with the medication with no side effects, no sedation, no nausea. Dr. Galdamez increased Risperdal yesterday to 1 mg daily and so far no side effects, no sedation, no nausea, no extrapyramidal symptoms. We will continue to work with patient in group therapy, milieu therapy, adjust medication as needed. JOB# [id number]
[2016-12-09] MEDS: INSULIN ASPART SLIDING SCALE 100 UNITS/ML UNIT SUBQ SCH ×4 (06:49→20:25)
[2016-12-09] MEDS: Multivitamin Tab PO SCH (08:20)
[2016-12-09] MEDS: Insulin Detemir 100 units/mL 10mL Vial SUBQ SCH (20:26)
--- NOTE | 2016-12-10 01:38 | Progress Notes ---
Case was discussed with staff of the patient. The patient has been compliant with his medication, however, he is still getting confused, easily agitated, continues to be unpredictable, impulsive, and continues to have poor insight, unable to make safe plan for self-care. He gets agitated at times, however, the staff has to redirect him. He is very confused and unpredictable. I will be increasing his Aricept dose to 10 mg and so far no side effects, no sedation, no nausea, and no extrapyramidal symptoms. We will continue to work with the patient in group therapy, milieu therapy, and adjust the medication as needed. JOB# [id number]
[2016-12-10] MEDS: INSULIN ASPART SLIDING SCALE 100 UNITS/ML UNIT SUBQ SCH ×4 (06:37→20:20)
[2016-12-10] MEDS: Multivitamin Tab PO SCH (08:14)
[2016-12-10] MEDS: Insulin Detemir 100 units/mL 10mL Vial SUBQ SCH (20:19)
--- NOTE | 2016-12-10 23:05 | Progress Notes ---
Case was discussed with staff of the patient, reviewed records. The patient continues to isolate himself. He has episodes where he gets agitated, other episodes when he is more mellow. He is still not stable. In general, he is confused, demented, and easily agitated. No side effects for the medication, no sedation, no nausea, and no extrapyramidal symptoms. Yesterday, the dose of Risperdal was increased to 1 mg daily with no side effects, no sedation, no nausea, and no extrapyramidal symptoms. I will continue the patient in group therapy, milieu therapy and adjust medication as needed. JOB# [id number]
[2016-12-11] MEDS: INSULIN ASPART SLIDING SCALE 100 UNITS/ML UNIT SUBQ SCH ×4 (06:37→20:44)
[2016-12-11] MEDS: Multivitamin Tab PO SCH (08:23)
[2016-12-11] MEDS: Insulin Detemir 100 units/mL 10mL Vial SUBQ SCH (20:45)
--- NOTE | 2016-12-12 03:30 | Progress Notes ---
Case was discussed with staff of the patient, reviewed records. The patient continues to be confused and demented, continues to have episodes of agitation and irritability. He is sleeping and eating well. He is compliant with the medication with no side effects, no sedation, no nausea, no extrapyramidal symptoms. His Risperdal dose was increased yesterday to 1 mg a day, with no side effects, no sedation, no nausea, no extrapyramidal symptoms. We will continue to work with the patient in group therapy, milieu therapy, adjust the medication as needed. JOB# [id number]
[2016-12-12] MEDS: INSULIN ASPART SLIDING SCALE 100 UNITS/ML UNIT SUBQ SCH ×5 (06:34→20:28)
[2016-12-12] MEDS: Multivitamin Tab PO SCH (09:22)
[2016-12-12] MEDS: Insulin Detemir 100 units/mL 10mL Vial SUBQ SCH (20:30)
--- NOTE | 2016-12-13 00:08 | Progress Notes ---
Case was discussed with staff of the patient, reviewed records. The patient continues to isolate himself. Continues to be confused and demented. Continues to be unable to make safe plan for self-care. He continues to have poor insight. Unable to make safe plan for self-care. Looking disheveled, disorganized. No side effects with the medication, no sedation, no nausea and no extrapyramidal symptoms. We will continue to work the patient in group therapy, milieu therapy and adjust medication as needed. JOB# [id number]
[2016-12-13] MEDS: INSULIN ASPART SLIDING SCALE 100 UNITS/ML UNIT SUBQ SCH ×4 (06:35→20:26)
[2016-12-13] MEDS: Multivitamin Tab PO SCH (08:16)
[2016-12-13] MEDS: Insulin Detemir 100 units/mL 10mL Vial SUBQ SCH (20:27)
--- NOTE | 2016-12-13 21:19 | Progress Notes ---
SUBJECTIVE: The patient seen, chart reviewed, discussed with staff. The patient of Dr. Mcneal. The patient remains isolative, withdrawn, depressed appearing very confused, demented, unable to utilize basic food, clothing and senior care, concerns for grave disability, poor insight, not really able to have a meaningful conversation, still disorganized, ____. He is taking his medications, no side effects, no EPS. No over sedation. Sleeping fairly well, eating with prompting. ASSESSMENT: The patient remains with grave disability, unkempt, confused. We are awaiting confirmation of placement. PLAN: We will continue to monitor for any overt side effects and redirect the patient. He does appear to be less aggressive and less delusional on a positive note. JOB# [id number]
[2016-12-14] MEDS: INSULIN ASPART SLIDING SCALE 100 UNITS/ML UNIT SUBQ SCH ×4 (06:32→21:01)
[2016-12-14] MEDS: Multivitamin Tab PO SCH (09:45)
--- NOTE | 2016-12-14 20:11 | Progress Notes ---
SUBJECTIVE: Chart reviewed and the patient interviewed. Also, discussed the patient's condition with the staff and reviewed records and labs. The patient is pleasantly confused. The patient was arranging and rearranging his bed in a confused state. The patient also was mumbled and still unable to provide any safe plan for self-care. Also, he is still restless. On the other hand, the patient is exhibiting no aggressive behavior and easier to redirect him. ASSESSMENT: The patient is still psychotic. TREATMENT PLAN: Continue monitoring psychotropic medications and adjust . Also, continue to working on behavioral modification as well as discharge plans. JOB# [id number]
[2016-12-14] MEDS: Insulin Detemir 100 units/mL 10mL Vial SUBQ SCH (21:00)
[2016-12-15] MEDS: INSULIN ASPART SLIDING SCALE 100 UNITS/ML UNIT SUBQ SCH ×3 (06:35→17:01)
[2016-12-15] MEDS: Multivitamin Tab PO SCH (09:16)
--- NOTE | 2016-12-15 18:31 | Discharge Summary ---
IDENTIFYING INFORMATION: The patient is an 81-year-old male. HISTORY OF PRESENT ILLNESS: The patient has a history of dementia, transferred from [facility]. The patient was anxious, has been in irritable mood. He has been confused, restless. He also has been suspicious and paranoid. He has been having difficulty following staff's orders and needing a lot of redirection. He is a well-known case to me and I have been seeing him at [facility]. COURSE IN THE HOSPITAL: The patient was started back on his medication prior to admission. Aricept 10 mg at bedtime; it was 5; it was increased to 10 mg. He also was on insulin, bisacodyl, Zestril 5 mg daily, Namenda 10 mg twice a day and Januvia. Risperdal was initiated and dose was increased to 1 mg daily. The patient progressively got better. He was sleeping well, eating well. He was at his basic level of functioning. No acting out behavior. So as he improved, he was ready to go to a lesser level of care with no longer meeting criteria for the inpatient treatment. So, the patient was discharged back to [facility]. FINAL DIAGNOSIS: Dementia with behavioral disturbances. FOLLOWUP: I will follow up with the patient at [facility] and primary care physician there. EXPECTED OUTCOME: Stable if the patient complies with the above. JOB# [id number]
== END 2016-12-15 18:05 | DRG 884 ==
LOC: GERO 23:25
PROVIDERS: ADMIT Psychiatry & Neurology Psychiatry; ATTEND Psychiatry & Neurology Psychiatry
DX: F03.91 Unspecified dementia, unspecified severity, with behavioral disturbance (principal); E11.22 Type 2 diabetes mellitus with diabetic chronic kidney disease; E11.65 Type 2 diabetes mellitus with hyperglycemia; N39.0 Urinary tract infection, site not specified; E87.1 Hypo-osmolality and hyponatremia; E44.1 Mild protein-calorie malnutrition; F03.90 Unspecified dementia, unspecified severity, without behavioral disturbance, psychotic disturbance, mood disturbance, and anxiety; N18.9 Chronic kidney disease, unspecified; I12.9 Hypertensive chronic kidney disease with stage 1 through stage 4 chronic kidney disease, or unspecified chronic kidney disease; F29 Unspecified psychosis not due to a substance or known physiological condition; Z79.4 Long term (current) use of insulin
CPT/HCPCS: 36415-UA; 82947-TC; 82948-90; J0696; J1815; J2001; Z7610